=== PATIENT | female | born 1950 | race Two or more races ===

== ENCOUNTER 2024-10-06 12:25 | Emergency (ER) | payer OTHER ==
[~2024-10-06] VITALS: Ht 157.5 cm; Wt 71.7 kg
[2024-10-06] MEDS ORDERED: CHILDREN'S ASPI81 MG PO (13:44)
[2024-10-06 15:12] LABS: HEMATOCRIT 41.8 % (36.0-45.00); HEMOGLOBIN 13.6 g/dL (12.0-15.00); MEAN CELL VOLUME 87.3 fL (80.00-100.00); MEAN CORPUSCULAR HEMOGLOBIN 28.5 pg (27.00-32.0); MEAN CORPUSCULAR HGB CONC 32.7 g/dl (32.0-36.0); PLATELET COUNT 224 K/uL (150-450); RED BLOOD COUNT 4.78 M/uL (4.00-6.00); RED CELL DISTRIBUTION WIDTH 13.9 % (11.5-14.5)
[2024-10-06 15:22] LABS: URINE APPEARANCE Clear; URINE BILIRRUBIN Negative (NEGATIVE); URINE COLOR Yellow; URINE GLUCOSE Negative (NEGATIVE); URINE KETONE 15 (NEGATIVE); URINE LEUKOCYTE Negative; URINE NITRATE Negative; URINE PROTEIN Negative (NEGATIVE)
[2024-10-06 15:27] LABS: URINE BACTERIA 97.9 uL (0.0-1933); URINE EPITHELIAL CELLS 10.1 uL (0.0-38.8); URINE RBC 71.5 uL (0.0-20.8); URINE WBC 4.7 uL (0.0-23.2)
[2024-10-06 15:33] LABS: URINE BLOOD TRACES
[2024-10-06 15:37] LABS: PARTIAL THROMBOPLASTIN TIME 23.3 SECONDS (22.0-34.0); PROTHROMBIN TIME 10.9 SECONDS (9.0-11.5)
[2024-10-06 15:43] LABS: ALBUMIN 3.7 gm/dL (3.4-5.0); BILIRUBIN TOTAL 0.51 mg/dL (0.3-1.2); CALCIUM 8.9 mg/dL (8.5-10.1); CREATININE SERUM 0.61 mg/dL (0.55-1.02); GFR 95.88; GLOBULINA 3.7 G/DL (2.4-3.5); POTASSIUM 3.85 mEq/L (3.5-5.1); TOTAL PROTEIN 7.4 gm/dL (6.4-8.2)
[2024-10-06] MEDS ORDERED: LevETIRAcetam 500 MG/5 ML VIAL IV ONE (16:00)
== END 2024-10-06 21:07 | disposition home or self-care (01) ==
LOC: ER 12:25
PROVIDERS: General Practice
DX: R53.81 Other malaise (principal); Z86.69 Personal history of other diseases of the nervous system and sense organs; Z20.822 Contact with and (suspected) exposure to COVID-19
CPT/HCPCS: 36415; 70450; 71046; 73521; 96365; 99284; J3490

== ENCOUNTER 2024-10-20 20:25 | Inpatient (IN) | payer OTHER ==
[~2024-10-20] VITALS: Ht 152.4 cm; Wt 74.8 kg
[~2024-10-20 20:25] MED LIST: CHILDREN'S ASPI81 MG PO
[2024-10-20] MEDS ORDERED: KEPPRA500 MG (20:37)
[2024-10-20] MEDS ORDERED: LORazepam 2 MG/ML VIAL IV ONE (21:15)
[2024-10-20] MEDS ORDERED: 0.9 % SODIUM CHLORIDE 1,000 ML IV SCH (21:15)
[2024-10-20] MEDS ORDERED: LORazepam 2 MG/ML DISP.SYRIN ONE (21:23)
[2024-10-20 21:35] LABS: HEMATOCRIT 39.7 % (36.0-45.00); HEMOGLOBIN 13.5 g/dL (12.0-15.00); MEAN CELL VOLUME 84.5 fL (80.00-100.00); MEAN CORPUSCULAR HEMOGLOBIN 28.7 pg (27.00-32.0); MEAN CORPUSCULAR HGB CONC 33.9 g/dl (32.0-36.0); PLATELET COUNT 286 K/uL (150-450)
[2024-10-20 21:54] LABS: ALBUMIN 3.3 gm/dL (3.4-5.0); BILIRUBIN TOTAL 0.27 mg/dL (0.3-1.2); CALCIUM 8.8 mg/dL (8.5-10.1); CREATININE SERUM 0.64 mg/dL (0.55-1.02); GFR 90.71; GLOBULINA 3.7 G/DL (2.4-3.5); POTASSIUM 4.11 mEq/L (3.5-5.1)
[2024-10-20 23:51] LABS: PH,URINE 6.5 (5.0-8.0); URINE APPEARANCE Clear; URINE BILIRRUBIN Negative (NEGATIVE); URINE BLOOD Trace; URINE COLOR Yellow; URINE GLUCOSE Negative (NEGATIVE); URINE KETONE Negative (NEGATIVE); URINE LEUKOCYTE Negative; URINE NITRATE Negative; URINE PROTEIN Negative (NEGATIVE); URINE UROBILINOGEN 0.2 E.U./dl
[2024-10-20 23:54] LABS: URINE BACTERIA 19.5 uL (0.0-1933); URINE EPITHELIAL CELLS 1.5 uL (0.0-38.8); URINE RBC 10.7 uL (0.0-20.8); URINE WBC 2.6 uL (0.0-23.2)
[2024-10-21] MEDS ORDERED: LevETIRAcetam 500 MG/5 ML VIAL IV ONE ×2 (02:18→15:22)
[2024-10-21] MEDS ORDERED: LevETIRAcetam 500 MG/5 ML VIAL IV STA (02:25)
[2024-10-21] MEDS ORDERED: LevETIRAcetam 500 MG/5 ML VIAL IV SCH (13:43)
[2024-10-21] MEDS ORDERED: ACETAMINOPHEN 325 MG TABLET PO PRN (13:45)
[2024-10-21] MEDS ORDERED: ONDANSETRON HCL 4 MG in 0.9 % SODIUM CHLORIDE 50 ML IV PRN (13:45)
[2024-10-21] MEDS ORDERED: 0.9 % SODIUM CHLORIDE 1,000 ML IV SCH (13:45)
[2024-10-21] MEDS ORDERED: ACETAMINOPHEN 500 MG GEL..CAP PO PRN (14:00)
[2024-10-21] MEDS ORDERED: FAMOTIDINE/PF 20 MG/2 ML VIAL ONE (15:22)
[2024-10-21 16:33] LABS: ALBUMIN 3.3 gm/dL (3.4-5.0); INR 0.99; MAGNESIUM 2.2 mg/dL (1.8-2.4); PARTIAL THROMBOPLASTIN TIME 24.5 SECONDS (22.0-34.0); PROTHROMBIN TIME 10.8 SECONDS (9.0-11.5)
[2024-10-21 16:56] VITALS: BP 125/64; BP 125/647; O2SAT 100
[2024-10-21] MEDS ORDERED: FAMOTIDINE/PF 20 MG in 0.9 % SODIUM CHLORIDE 8 ML IV PUSH SCH (17:00)
[2024-10-21 18:40] VITALS: BP 123/65; O2SAT 99
[2024-10-22 02:50] VITALS: BP 123/74; O2SAT 98
[2024-10-22 10:39] VITALS: BP 156/67
[2024-10-22 11:35] LABS: HEMATOCRIT 41.4 % (36.0-45.00); HEMOGLOBIN 14.1 g/dL (12.0-15.00); MEAN CORPUSCULAR HEMOGLOBIN 28.9 pg (27.00-32.0); PLATELET COUNT 291 K/uL (150-450); RED BLOOD COUNT 4.88 M/uL (4.00-6.00); RED CELL DISTRIBUTION WIDTH 13.8 % (11.5-14.5)
[2024-10-22 12:51] LABS: ALBUMIN 3.2 gm/dL (3.4-5.0); BILIRUBIN TOTAL 0.53 mg/dL (0.3-1.2); CALCIUM 9.6 mg/dL (8.5-10.1); CREATININE SERUM 0.5 mg/dL (0.55-1.02); GFR 120.61; GLOBULINA 3.5 G/DL (2.4-3.5); POTASSIUM 4.54 mEq/L (3.5-5.1); TOTAL PROTEIN 6.7 gm/dL (6.4-8.2)
[2024-10-22] MEDS ORDERED: ENOXAPARIN SODIUM 40 MG/0.4 ML SYRINGE SUBCUTANEO SCH (14:25)
[2024-10-22] MEDS ORDERED: FAMOTIDINE/PF 20 MG/2 ML VIAL ONE (16:16)
[2024-10-22 18:31] VITALS: BP 140/70
[2024-10-23 02:28] VITALS: BP 124/71; O2SAT 99
[2024-10-23 09:26] VITALS: BP 152/66; O2SAT 99
[2024-10-23 09:27] LABS: CALCIUM 8.7 mg/dL (8.5-10.1); CREATININE SERUM 0.4 mg/dL (0.55-1.02); GFR 156.03; POTASSIUM 4.34 mEq/L (3.5-5.1)
[2024-10-23 18:46] VITALS: BP 149/68
[2024-10-23] MEDS ORDERED: LevETIRAcetam 500 MG/5 ML VIAL IV SCH (21:00)
[2024-10-24 01:55] VITALS: BP 124/66
[2024-10-24 08:36] VITALS: BP 98/63
[2024-10-24 08:37] VITALS: BP 125/67
[2024-10-24 19:26] VITALS: BP 129/66; O2SAT 97
[2024-10-24] MEDS ORDERED: LevETIRAcetam 5 MG/1 ML REDILUIDO IV SCH (21:00)
== END 2024-10-24 21:29 | disposition home or self-care (01) | DRG 101 ==
LOC: ER 20:25 → MEDJ 10-21 16:23
PROVIDERS: Emergency Medicine; General Practice; ADMIT Student in an Organized Health Care Education/Training Program; ATTEND Student in an Organized Health Care Education/Training Program
PROC: B020ZZZ Computerized Tomography (CT Scan) of Brain (ICD-10-PCS; principal; 2024-10-20)
PROC: 4A12X4Z Monitoring of Cardiac Electrical Activity, External Approach (ICD-10-PCS; 2024-10-21)
PROC: B030ZZZ Magnetic Resonance Imaging (MRI) of Brain (ICD-10-PCS; 2024-10-22)
PROC: B345ZZZ Ultrasonography of Bilateral Common Carotid Arteries (ICD-10-PCS; 2024-10-22)
PROC: B348ZZZ Ultrasonography of Bilateral Internal Carotid Arteries (ICD-10-PCS; 2024-10-22)
PROC: B246ZZZ Ultrasonography of Right and Left Heart (ICD-10-PCS; 2024-10-22)
DX: G40.909 Epilepsy, unspecified, not intractable, without status epilepticus (principal); F03.90 Unspecified dementia, unspecified severity, without behavioral disturbance, psychotic disturbance, mood disturbance, and anxiety; R41.82 Altered mental status, unspecified; R42 Dizziness and giddiness
CPT/HCPCS: 70544